=== PATIENT | female | born 1960 | race African-American/Black ===

== ENCOUNTER 2021-04-04 06:04 | Emergency (ER) | payer OTHER, MEDICAID ==
[~2021-04-04] VITALS: Ht 172.7 cm; Wt 110.0 kg
[2021-04-04] MEDS ORDERED: ASPIRIN 325MG EC TABLET PO ONE (06:45)
[2021-04-04 07:07] LABS: CHLORIDE 107 mEq/L (98-107)
[2021-04-04 07:10] LABS: BASOPHILS % 0.5 % (0.0-2.0); EOSINOPHILS % 2.2 % (0.0-5.0); HEMATOCRIT. 41.5 % (36.0-48.0); HEMOGLOBIN. 12.8 g/dL (12.0-16.0); LYMPHOCYTES % 36.5 % (20.0-50.0); MEAN CORPUSCULAR HEMOGLOBIN 22.1 pg (28.0-32.0); MEAN CORPUSCULAR VOLUME 71.3 fL (81.0-99.0); MEAN PLATELET VOLUME 9.9 fl (7.4-10.4); MONOCYTES % 9.3 % (2.0-8.0); NEUTROPHILS % 51.5 % (40.0-76.0); PLATELET 203 x1000/uL (130-400); RED BLOOD CELL COUNT 5.82 mill/uL (4.2-5.4); RED CELL DISTRIBUTION WIDTH 15.2 % (11.6-14.6)
[2021-04-04] MEDS ORDERED: LISINOPRIL 20MG TABLET PO ONE (07:45)
[2021-04-04] MEDS ORDERED: ACETAMINOPHEN 325MG TABLET PO ONE (07:45)
[2021-04-04] MEDS ORDERED: HYDRALAZINE 20MG/ML VIAL IV ONE (10:45)
[2021-04-04 10:48] VITALS: BP 154/108
== END 2021-04-04 11:21 | disposition left against medical advice (07) ==
LOC: ER 06:04
DX: R07.89 Other chest pain (principal); E11.9 Type 2 diabetes mellitus without complications; I10 Essential (primary) hypertension
CPT/HCPCS: 36415; 71045; 80053; 83880; 84484; 85025; 93005; 99285